=== PATIENT | male | born 1965 | race Caucasian/White ===

== ENCOUNTER → 2020-04-04 | Outpatient (CLI) | payer BC ==
[~2020-04-04] MED LIST: CIPR500T4 PO; CIPR500T78 PO; DVL500TSR PO; HYDR-34 PO; LORA1TAB PO; OXYC-12 PO; PRD20T PO; QUETIAPINE; SERT25TA PO; [UNRECOGNIZED DRUG - OTHER]
--- NOTE | 2020-04-04 10:39 | Diagnostic Imaging Report ---
PROCEDURE: MRI lumbar spine. TECHNIQUE: Multiplanar, multisequence MRI of the lumbar spine was performed without contrast. INDICATION: Worsened low back pain, previous lumbar surgery. COMPARISON: 10/22/2015. FINDINGS: The lumbar body heights are maintained and the alignment is stable and anatomic. Across the L5-S1 level, there has been decreased marrow edema and greater fatty deposition where there is increased Modic type II versus Modic type I degenerative changes across these endplates. There is marked disc desiccation, stature loss, and bulging of disc at the L5-S1 level which shows no abnormal fluid signal intensity. Some previous enhancing tissue and fibrotic changes in the left S1 lateral recess circumscribe the left descending S1 nerve. This material appears more pronounced than on the prior exam with greater left lateral recess impingement. Osteophyte/disc material at the L5-S1 level effaces and indents the ventral epidural fat and results in a moderate to severe degree of stenosis of central canal stenosis, increased in the interim. There is also progressive moderate to severe left L5-S1 neuroforaminal stenosis with increased more moderate right-sided foraminal narrowing. No fluid collection. No acute appearing abnormality. At L4-L5, osteophyte/disc material asymmetric to the left results in a relatively mild degree of left foraminal narrowing. The remaining levels are stable and unremarkable. IMPRESSION: 1. Mixed changes at L5-S1 with reduced edema and greater endplate fat, consistent with evolving Modic type changes, predominantly type II on today's study. 2. Progressive disc bulge, endplate osteophytes, and facet arthrosis result in increased left lateral recess and left foraminal stenosis as well as moderate to severe canal narrowing. Dictated by: Dictated on workstation # [id number]
== END ==
LOC: RAD 09:04
PROVIDERS: ATTEND Internal Medicine
DX: M48.07 Spinal stenosis, lumbosacral region (principal); M51.17 Intervertebral disc disorders with radiculopathy, lumbosacral region; M47.817 Spondylosis without myelopathy or radiculopathy, lumbosacral region; M25.78 Osteophyte, vertebrae
CPT/HCPCS: 72148